=== PATIENT | female | born 1990 | race African-American/Black ===

== ENCOUNTER 2016-10-04 16:45 | Emergency (ER) | payer SELFPAY ==
[~2016-10-04] VITALS: Ht 154.9 cm; Wt 49.9 kg
[~2016-10-04 16:45] MED LIST: ALPR0.25 PO; AMOX500C PO; HYDR-971 PO; LITH300C
[2016-10-04 17:39] VITALS: BP 102/55
--- NOTE | 2016-10-04 17:47 | PHYS DOC ---
Past Medical History Past Medical History: Anxiety, Asthma, Bipolar, Depression Past Surgical History: , Other Additional Past Surgical Histo: left finger amputation Alcohol Use: None Drug Use: Marijuana Adult General Chief Complaint Chief Complaint: FOOT INJURY PAIN [facility] Patient is a 26 year old female who presents with right foot pain and an abrasion for two hours after a bed fell on her foot. Took Tylenol at time of incident. Ambulatory with limp. Tetanus up to date. Review of Systems Review of Systems Constitutional: Denies fever or chills Eyes: Denies change in visual acuity, redness, or eye pain HENT: Denies nasal congestion or sore throat Respiratory: Denies cough or shortness of breath Cardiovascular: No additional information not addressed in HPI GI: Denies abdominal pain, nausea, vomiting, bloody stools or diarrhea : Denies dysuria or hematuria [] Musculoskeletal: Right foot pain Integument: Denies rash or skin lesions. Abrasion right foot Neurologic: Denies headache, focal weakness or sensory changes [] Endocrine: Denies polyuria or polydipsia [] Current Medications Current Medications Current Medications Medications (Trade) Dose Ordered Sig/Vincenzo Start Time Stop Time Status Last Admin Dose Admin Ibuprofen (Motrin) 600 mg 1X ONCE 10/04/16 18:15 10/04/16 18:16 DC 10/04/16 17:50 600 MG Allergies Allergies Allergies Coded Allergies Type Severity Reaction Last Updated Verified No Known Drug Allergies 08/28/13 No Physical Exam Physical Exam Constitutional: Well developed, well nourished, no acute distress, non-toxic appearance. HENT: Normocephalic, atraumatic, bilateral external ears normal, oropharynx moist, no oral exudates, nose normal. Eyes: PERRLA, EOMI, conjunctiva normal, no discharge. [] Neck: Normal range of motion, no tenderness, supple, no stridor. Cardiovascular:Heart rate regular rhythm, no murmu Lungs & Thorax: Bilateral breath sounds clear to auscultation Abdomen: Bowel sounds normal, soft, no tenderness, no masses, no pulsatile masses. Skin: Warm, dry, no erythema, no rash. Back: No tenderness, no CVA tenderness Extremities: Mild swelling and tenderness to 3rd and 4th metatarsal right foot with small superficial abrasion. Neurologic: Alert and oriented X 3, normal motor function, normal sensory function, no focal deficits noted. Psychologic: Affect normal, judgement normal, mood normal. [] Current Patient Data Vital Signs Vital Signs Date Time Temp Pulse Resp B/P Pulse Ox O2 Delivery O2 Flow Rate FiO2 10/04/16 17:39 98.2 60 16 99 Room Air 98.2 EKG EKG [] Radiology/Procedures Radiology/Procedures Foot Xray reviewed with Dr. Tesfaye Impressions: 1. Foot contusion Course & Med Decision Making Course & Med Decision Making Pertinent Labs and Imaging studies reviewed. (See chart for details) Patient has been sitting in room throughout stay in no acute distress. After review of xray, patient was informed of plan of care including lm wrap, crutches, elevation and ice and she agreed with plan of care. After I left the room, patient got on telephone and began cussing and yelling that she wasn't getting any pain medicaiton. Spoke with patient regrading plan of care a second time and she refuses to discuss it further. Dragon Disclaimer Dragon Disclaimer This electronic medical record was generated, in whole or in part, using a voice recognition dictation system. Departure Departure Impression: Primary Impression: Contusion of foot, right Disposition: HOME, SELF-CARE Condition: STABLE Referrals: NO PCP (PCP) Patient Instructions: Foot Contusion, [id number] Additional Instructions: 1. May take Ibuprofen as directed for pain and inflammation. 2. Follow up with primary doctor in 1-2 days 3. Return if problems or concerns JENNIFER TRUJILLO APRN Oct 04, 2016 17:47
[2016-10-04] MEDS ORDERED: IBUPROFEN 600 MG TABLET. PO ONE (18:15)
--- NOTE | 2016-10-05 09:16 | RAD ---
Right foot 3 views. History: Injury, pain and swelling third and fourth metatarsals 3 views were taken of the right foot. There is not evidence of an acute fracture or osseous abnormality. Impression: 1. Negative right foot.
== END 2016-10-04 19:01 | disposition home or self-care (01) ==
LOC: ER 16:45
DX: S90.31XA Contusion of right foot, initial encounter (principal); J45.909 Unspecified asthma, uncomplicated; F12.10 Cannabis abuse, uncomplicated; W06.XXXA Fall from bed, initial encounter; Y93.89 Activity, other specified; Y92.89 Other specified places as the place of occurrence of the external cause; Y99.8 Other external cause status
CPT/HCPCS: 73630; 99284

== ENCOUNTER 2017-04-05 21:42 | Emergency (ER) | payer SELFPAY ==
[~2017-04-05] VITALS: Ht 154.9 cm; Wt 49.0 kg
[2017-04-05] MEDS ORDERED: ACETAMINOPHEN 325 MG TABLET. PO ONE (23:00)
[2017-04-05] MEDS ORDERED: LORazepam 1 MG TABLET PO ONE (23:00)
[2017-04-06 00:23] VITALS: BP 110/70
--- NOTE | 2017-04-06 00:34 | PHYS DOC ---
Past Medical History Past Medical History: Anxiety, Asthma, Bipolar, Depression Past Surgical History: , Other Additional Past Surgical Histo: left finger amputation Alcohol Use: None Drug Use: Marijuana Adult General Chief Complaint Chief Complaint: PSYCH EVALUATION HPI HPI 26-year-old female presenting to the emergency department today with anxiety. She recently stopped her medications and has been feeling anxious. She denies homicidal or suicidal ideation. She reports pulling at her hair and now is creating a bald spot. No other complaints. Onset today. Location generalized. Duration intermittent. No alleviating or exacerbating factors. Review of systems was negative for chest pain shortness of breath nausea vomiting fevers chills. She denies suicidal or homicidal ideation. All other review of systems is negative unless otherwise noted in history of present illness. ED course: 26-year-old female presenting to the emergency department today with increasing anxiety after stopping her bipolar medications. Vital signs unremarkable. Physical exam unremarkable. We had the psychiatric assessment team talk with the patient to get outpatient therapy for the patient. Otherwise the patient was then discharged in stable condition. Review of Systems Review of Systems SEE ABOVE. Current Medications Current Medications Current Medications Medications (Trade) Dose Ordered Sig/Vincenzo Start Time Stop Time Status Last Admin Dose Admin Acetaminophen (Tylenol) 650 mg 1X ONCE 04/05/17 23:00 04/05/17 23:01 DC 04/05/17 22:56 650 MG Lorazepam (Ativan) 1 mg 1X ONCE 04/05/17 23:00 04/05/17 23:01 DC 04/05/17 22:56 1 MG Allergies Allergies Allergies Coded Allergies Type Severity Reaction Last Updated Verified No Known Drug Allergies 08/28/13 No Physical Exam Physical Exam SEE ABOVE Constitutional: Well developed, well nourished, no acute distress, non-toxic appearance. [] HENT: Normocephalic, atraumatic, bilateral external ears normal, oropharynx moist, no oral exudates, nose normal. [] Eyes: PERRLA, EOMI, conjunctiva normal, no discharge. [] Neck: Normal range of motion, no tenderness, supple, no stridor. [] Cardiovascular:Heart rate regular rhythm, no murmur [] Lungs & Thorax: Bilateral breath sounds clear to auscultation [] Abdomen: Bowel sounds normal, soft, no tenderness, no masses, no pulsatile masses. [] Skin: Warm, dry, no erythema, no rash. [] Back: No tenderness, no CVA tenderness. [] Extremities: No tenderness, no cyanosis, no clubbing, ROM intact, no edema. [] Neurologic: Alert and oriented X 3, normal motor function, normal sensory function, no focal deficits noted. [] Psychologic: Affect normal, judgement normal, mood normal. Current Patient Data Vital Signs Vital Signs Date Time Temp Pulse Resp B/P (MAP) Pulse Ox O2 Delivery O2 Flow Rate FiO2 04/06/17 00:23 56 110/70 (83) 100 Room Air 04/05/17 21:59 97.8 18 97.8 EKG EKG [] Radiology/Procedures Radiology/Procedures [] Course & Med Decision Making Course & Med Decision Making Pertinent Labs and Imaging studies reviewed. (See chart for details) [] Dragon Disclaimer Dragon Disclaimer This electronic medical record was generated, in whole or in part, using a voice recognition dictation system. Departure Departure Impression: Primary Impression: Bipolar 1 disorder Disposition: HOME, SELF-CARE Condition: STABLE Referrals: NO PCP (PCP) MAGGY BURRIS MD Patient Instructions: Manic Depression (Bipolar Disorder) Additional Instructions: Thank you for allowing us to participate in your care today. Follow-up with your clinic visit scheduled by the psychiatric assessment team. Call your Primary Doctor tomorrow and inform them of your visit today. If you do not have a primary care provider you can ask for a list of our primary care providers. Return to the emergency department you have any new or concerning findings. This should be evaluated by the primary care physician and any necessary consulting services for continued management within a few days after discharge. Return to emergency room if you have any new or concerning symptoms including but not limited to fever, chills, nausea, vomiting, intractable pain, any new rashes, chest pain, shortness of air, uncontrolled bleeding, difficulty breathing, and/or vision loss. MARYCARMEN BARRAGAN MD Apr 06, 2017 00:34
== END 2017-04-06 00:38 | disposition home or self-care (01) ==
LOC: ER 21:42
DX: F31.9 Bipolar disorder, unspecified (principal); J45.909 Unspecified asthma, uncomplicated; F12.10 Cannabis abuse, uncomplicated; Z89.022 Acquired absence of left finger(s)
CPT/HCPCS: 99284

== ENCOUNTER 2017-05-05 10:22 | Emergency (ER) | payer SELFPAY ==
[~2017-05-05] VITALS: Ht 154.9 cm; Wt 49.9 kg
[2017-05-05 10:26] VITALS: BP 113/62
[2017-05-05] MEDS ORDERED: METH-37 PO (10:44)
[2017-05-05] MEDS ORDERED: TRAM-48 PO (10:44)
[2017-05-05] MEDS ORDERED: METH4TAB2 PO (10:44)
--- NOTE | 2017-05-05 10:44 | PHYS DOC ---
Past Medical History Past Medical History: Anxiety, Asthma, Bipolar, Depression Past Surgical History: , Other Additional Past Surgical Histo: left finger amputation Alcohol Use: None Drug Use: Marijuana Adult General Chief Complaint Chief Complaint: BACK PAIN OR INJURY HPI HPI Patient is a 26 year old female with history of asthma bipolar and anxiety who presents today complaining of thoracic back pain that began 3 days ago. 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 Patient states she believes she pulled her muscles. Patient denies any trauma. Denies any pain radiating to bilateral lower extremities or upper extremities. Denies any loss of bowel bladder function. Denies any urinary tract infection symptoms. Review of Systems Review of Systems Constitutional: Denies fever or chills [] GI: Denies abdominal pain, nausea, vomiting, bloody stools or diarrhea [] : Denies dysuria or hematuria [] Musculoskeletal: back pain Integument: Denies rash or skin lesions [] Neurologic: Denies headache, focal weakness or sensory changes [] Allergies Allergies Allergies Coded Allergies Type Severity Reaction Last Updated Verified No Known Drug Allergies 08/28/13 No Physical Exam Physical Exam Constitutional: Well developed, well nourished, no acute distress, non-toxic appearance. []] Abdomen: Bowel sounds normal, soft, no tenderness, no masses, no pulsatile masses. [] Skin: Warm, dry, no erythema, no rash. [] Back: Diffuse paraspinal muscle tenderness to the thoracic spine, no midline thoracic spine tenderness, no CVA tenderness. [] Extremities: No tenderness, no cyanosis, no clubbing, ROM intact, no edema. [] Neurologic: Alert and oriented X 3, normal motor function, normal sensory function, no focal deficits noted. [] Psychologic: Affect normal, judgement normal, mood normal. [] Current Patient Data Vital Signs Vital Signs Date Time Temp Pulse Resp B/P (MAP) Pulse Ox O2 Delivery O2 Flow Rate FiO2 05/05/17 10:26 98.0 65 16 98 Room Air 98.0 EKG EKG [] Radiology/Procedures Radiology/Procedures [] Course & Med Decision Making Course & Med Decision Making Pertinent Labs and Imaging studies reviewed. (See chart for details) Patient is in the ED with complaint of thoracic muscle strain, no known injury. Recommended heat or ice to her back. Recommended following up with the PCP. Discharged with Ultram,Robaxin and Medrol Dosepak. Provided return precautions and discharged in stable condition. Dragon Disclaimer Dragon Disclaimer This electronic medical record was generated, in whole or in part, using a voice recognition dictation system. Departure Departure Impression: Primary Impression: Acute thoracic myofascial strain Disposition: 01 HOME, SELF-CARE Condition: STABLE Referrals: NO PCP (PCP) Follow-up with your doctor in 1-2 weeks Patient Instructions: Back Pain, Adult, Muscle Strain Additional Instructions: You were seen with back pain suspicious of muscle strain. Do not lift anything heavier than a gallon of milk for one week. You can apply heat to ice to your back. You can do the exercises provided in your discharge paperwork as tolerated. Follow-up with the primary care doctor in 1-2 weeks. Scripts Methylprednisolone (MEDROL) 4 Mg Tab.ds.pk 1 PKG PO UD, #1 PKG Prov: MARITZA MARTINEZ APRN 05/05/17 Methocarbamol (ROBAXIN) 500 Mg Tablet 1 TAB PO TID, #30 TAB Prov: MARITZA MARTINEZ APRN 05/05/17 Tramadol Hcl (ULTRAM) 50 Mg Tablet 1 TAB PO Q6HRS, #30 TAB Prov: MARITZA MARTINEZ APRN 05/05/17 Problem Qualifiers Primary Impression: Acute thoracic myofascial strain Encounter type: initial encounter Qualified Codes: S29.019A - Strain of muscle and tendon of unspecified wall of thorax, initial encounter MARITZA MARTINEZ APRN May 05, 2017 10:44
== END 2017-05-05 10:49 | disposition home or self-care (01) ==
LOC: ER 10:22
DX: S29.012A Strain of muscle and tendon of back wall of thorax, initial encounter (principal); J45.909 Unspecified asthma, uncomplicated; F31.9 Bipolar disorder, unspecified; F12.10 Cannabis abuse, uncomplicated; X50.9XXA Other and unspecified overexertion or strenuous movements or postures, initial encounter; Y93.89 Activity, other specified; Y99.8 Other external cause status; Y92.89 Other specified places as the place of occurrence of the external cause
CPT/HCPCS: 99283

== ENCOUNTER 2017-07-21 11:57 | Emergency (ER) | payer SELFPAY ==
[~2017-07-21] VITALS: Ht 154.9 cm; Wt 51.3 kg
[~2017-07-21 11:57] MED LIST changes: +METH-37 PO; +METH4TAB2 PO; +TRAM-48 PO
[2017-07-21 12:58] LABS: BASO % 0 % (0-3); EOS % 2 % (0-3); HEMATOCRIT 43.6 % (36.0-47.0); HEMOGLOBIN 14.8 g/dL (12.0-15.5); LYMPH # 2.9 x10^3/uL (1.0-4.8); LYMPH % 38 % (24-48); MEAN CORPUSCULAR HEMOGLOBIN 31 pg (25-35); MEAN CORPUSCULAR HGB CONC 34 g/dL (31-37); MEAN CORPUSCULAR VOLUME 91 fL (79-100); MONO % 10 % (0-9); NEUT % 50 % (31-73); PLATELET COUNT 296 x10^3/uL (140-400); RED BLOOD COUNT 4.81 x10^6/uL (3.50-5.40); RED CELL DISTRIBUTION WIDTH 14.7 % (11.5-14.5); WHITE BLOOD COUNT 7.7 x10^3/uL (4.0-11.0)
[2017-07-21 13:00] LABS: NEG OBC UR NEG; POS OBC UR POS
--- NOTE | 2017-07-21 13:00 | EKG ---
[facility] [address] [place] [address] Test Date: 2017-07-21 Test Time: 12:50:07 Pat Name: RUBI BURNS Department: Room: Gender: F Compliance Reviewer: : 1990 Requested By: CINDY MONROY Order Number: [id number] Reading MD: Elizabeth Mota Measurements Intervals [place] Rate: 57 P: 52 CA: 180 QRS: 30 QRSD: 72 T: 20 QT: 398 QTc: 390 Interpretive Statements SINUS RHYTHM NORMAL EKG Electronically Signed On 07-21-2017 20:17:22 CDT by Elizabeth Mota
[2017-07-21 13:24] LABS: CALCIUM 8.9 mg/dL (8.5-10.1); CREATININE 0.8 mg/dL (0.6-1.0); GFR 104.9; POTASSIUM 3.6 mmol/L (3.5-5.1)
--- NOTE | 2017-07-21 13:29 | PHYS DOC ---
Past Medical History Past Medical History: Anxiety, Asthma, Bipolar, Depression Past Surgical History: , Other Additional Past Surgical Histo: left finger amputation Alcohol Use: None Drug Use: Marijuana Social History Narrative: pt reports no drug use at this time. Adult General Chief Complaint Chief Complaint: HEADACHE HPI HPI Patient is a 26 [address] AA female street of anxiety who presents with fall with cystic headache, nausea since yesterday. Patient states headache has gradually worsened today. Patient reports pain over the posterior occiput and neck. Denies midline neck tenderness, extremity weakness or loss of sensation. Denies vomiting. Patient does not recall the cause of her fall yesterday. Last bone menstrual period was 2 weeks ago. Other than anxiety, patient denies any chronic medical conditions. Review of Systems Review of Systems Review symptoms as per history of present illness. All other review symptoms are negative. Current Medications Current Medications Current Medications Medications (Trade) Dose Ordered Sig/Vincenzo Start Time Stop Time Status Last Admin Dose Admin Acetaminophen (Tylenol) 650 mg 1X ONCE 07/21/17 13:45 07/21/17 13:46 DC 07/21/17 13:47 650 MG Fentanyl Citrate (Fentanyl 2ml Vial) 75 mcg 1X ONCE 07/21/17 13:30 07/21/17 13:31 DC Lorazepam (Ativan) 1 mg 1X ONCE 07/21/17 12:45 07/21/17 12:46 DC 07/21/17 12:56 1 MG Morphine Sulfate 4 mg 1X ONCE 07/21/17 15:30 07/21/17 15:31 DC 07/21/17 15:33 4 MG Ondansetron HCl (Zofran) 4 mg 1X ONCE 07/21/17 13:30 07/21/17 13:31 DC 07/21/17 14:44 4 MG Allergies Allergies Allergies Coded Allergies Type Severity Reaction Last Updated Verified No Known Drug Allergies 08/28/13 No Physical Exam Physical Exam Constitutional: Well developed, well nourished, no acute distress, non-toxic appearance. [] HENT: Normocephalic, stairs scalp, tenderness, no scalp hematoma appreciated,, bilateral external ears normal, oropharynx moist, nose normal. [] Eyes: PERRLA, EOMI, conjunctiva normal, no discharge. [] Neck: Normal range of motion, no midline bony tenderness, or bruising. Diffuse posterior neck pain. [] Cardiovascular:Heart rate regular rhythm, no murmur. [] Lungs & Thorax: Bilateral breath sounds clear to auscultation [] Abdomen: Bowel sounds normal, soft, no tenderness. [] Skin: Warm, dry, no erythema.[] Back: No tenderness, no CVA tenderness. [] Extremities: No tenderness, no cyanosis, no clubbing, ROM intact, no edema. [] Neurologic: Alert and oriented X 3, normal motor function, normal sensory function, no focal deficits noted. [] Psychologic: Affect, anxious, tearful[] Current Patient Data Vital Signs Vital Signs Date Time Temp Pulse Resp B/P (MAP) Pulse Ox O2 Delivery O2 Flow Rate FiO2 07/21/17 16:33 52 14 97 07/21/17 15:33 Room Air 07/21/17 12:07 97.6 122/58 (79) 97.6 Lab Values Laboratory Tests Test 07/21/17 12:34 07/21/17 12:40 07/21/17 12:42 White Blood Count 7.7 x10^3/uL (4.0-11.0) Red Blood Count 4.81 x10^6/uL (3.50-5.40) Hemoglobin 14.8 g/dL (12.0-15.5) Hematocrit 43.6 % (36.0-47.0) Mean Corpuscular Volume 91 fL (79-100) Mean Corpuscular Hemoglobin 31 pg (25-35) Mean Corpuscular Hemoglobin Concent 34 g/dL (31-37) Red Cell Distribution Width 14.7 % (11.5-14.5) H Platelet Count 296 x10^3/uL (140-400) Neutrophils (%) (Auto) 50 % (31-73) Lymphocytes (%) (Auto) 38 % (24-48) Monocytes (%) (Auto) 10 % (0-9) H Eosinophils (%) (Auto) 2 % (0-3) Basophils (%) (Auto) 0 % (0-3) Neutrophils # (Auto) 3.9 x10^3uL (1.8-7.7) Lymphocytes # (Auto) 2.9 x10^3/uL (1.0-4.8) Monocytes # (Auto) 0.8 x10^3/uL (0.0-1.1) Eosinophils # (Auto) 0.2 x10^3/uL (0.0-0.7) Basophils # (Auto) 0.0 x10^3/uL (0.0-0.2) Sodium Level 138 mmol/L (136-145) Potassium Level 3.6 mmol/L (3.5-5.1) Chloride Level 102 mmol/L (98-107) Carbon Dioxide Level 25 mmol/L (21-32) Anion Gap 11 (6-14) Blood Urea Nitrogen 7 mg/dL (7-20) Creatinine 0.8 mg/dL (0.6-1.0) Estimated GFR (Cockcroft-Gault) 104.9 Glucose Level 89 mg/dL (70-99) Calcium Level 8.9 mg/dL (8.5-10.1) Thyroid Stimulating Hormone (TSH) 0.921 uIU/mL (0.358-3.74) Urine Test Negative (NEG) Urine Opiates Screen Pos (NEG) Urine Methadone Screen Neg (NEG) Urine Barbiturates Neg (NEG) Urine Phencyclidine Screen Neg (NEG) Urine Amphetamine/Methamphetamine Neg (NEG) Urine Benzodiazepines Screen Pos (NEG) Urine Cocaine Screen Neg (NEG) Urine Cannabinoids Screen Pos (NEG) Urine Ethyl Alcohol Neg (NEG) POC Urine HCG, Qualitative Hcg negative (Negative) Laboratory Tests 07/21/17 12:34 Laboratory Tests 07/21/17 12:34 EKG EKG [EKG: Sinus rhythm, rate 57, no acute ST-T wave changes, QTC 390.] Radiology/Procedures Radiology/Procedures [CT head last cervical spine no acute injury per radiology report.] Course & Med Decision Making Course & Med Decision Making Pertinent Labs and Imaging studies reviewed. (See chart for details) [Seen is neurologically intact. Symptoms consistent with postconcussion syndrome. Patient noted to be bradycardic in the ED. Heart rate ranging from 40 status. 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 Given typical closed head injury instructions with follow-up recommended. Patient verbalizes understanding agreement discharge instructions prior to departure.] Dragon Disclaimer Dragon Disclaimer This electronic medical record was generated, in whole or in part, using a voice recognition dictation system. Departure Departure Impression: Primary Impression: Post concussion syndrome Additional Impression: Bradycardia Disposition: HOME, SELF-CARE Condition: GOOD Referrals: NO PCP (PCP) Problem Qualifiers CINDY MONROY DO Jul 21, 2017 13:29
[2017-07-21] MEDS ORDERED: ONDANSETRON PF 4 MG/2 ML VIAL. IV ONE (13:30)
[2017-07-21] MEDS ORDERED: fentaNYL PF VIAL 100 MCG/2 ML VIAL IV ONE (13:30)
--- NOTE | 2017-07-21 13:43 | RAD ---
CT of the head without contrast, 07/21/2017: History: Fall, headache and neck soreness The ventricles are within normal limits in size. There is no shift of the midline structures. There is no evidence of acute intracranial hemorrhage or mass effect. IMPRESSION: No acute intracranial abnormality is detected. CT of the cervical spine without contrast, 07/21/2017: Noncontrast scans were obtained with multiplanar reconstructions produced. No fracture or dislocation is identified. There are slight posterior disc bulges at several levels. Shoulder related artifacts obscure the disc margins in the lower cervical region. No significant central spinal stenosis is evident. The paraspinous soft tissues are unremarkable. IMPRESSION: No acute cervical spine abnormality is detected. PQRS Compliance Statement: One or more of the following individualized dose reduction techniques were utilized for this examination: 1. Automated exposure control 2. Adjustment of the mA and/or kV according to patient size 3. Use of iterative reconstruction technique
[2017-07-21] MEDS ORDERED: ACETAMINOPHEN 325 MG TABLET. PO ONE (13:45)
[2017-07-21 14:09] LABS: BARBITURATES NEG (NEG); BENZODIAZEPINES POS (NEG); CANNABINOIDS POS (NEG); COCAINE NEG (NEG); METHADONE NEG (NEG); OPIATES POS (NEG); PHENCYCLIDINE NEG (NEG)
[2017-07-21] MEDS ORDERED: MORPHINE SULFATE 4 MG/ML DISP.SYRIN. IV ONE (15:30)
--- NOTE | 2017-07-21 16:09 | EKG ---
[facility] [address] [place] [address] Test Date: 2017-07-21 Test Time: 13:43:46 Pat Name: RUBI BURNS Department: Room: Gender: F Restaurant Assistant Manager: : 1990 Requested By: CINDY MONROY Order Number: [id number] Reading MD: Elizabeth Mota Measurements Intervals [place] Rate: 59 P: 43 [place]: 186 QRS: 16 QRSD: 74 T: 17 QT: 404 QTc: 400 Interpretive Statements SINUS RHYTHM NORMAL EKG Electronically Signed On 07-21-2017 20:17:52 CDT by Elizabeth Mota
[2017-07-21 16:33] VITALS: BP 107/57
== END 2017-07-21 16:42 | disposition home or self-care (01) ==
LOC: ER 11:57
DX: F07.81 Postconcussional syndrome (principal); R00.1 Bradycardia, unspecified; J45.909 Unspecified asthma, uncomplicated; F31.9 Bipolar disorder, unspecified
CPT/HCPCS: 36415; 70450; 72125; 80048; 80307; 81025; 84443; 85025; 93005; 96374; 96375; 99285; J2060; J2270; J2405; G0479

== ENCOUNTER 2017-08-11 15:21 | Emergency (ER) | payer SELFPAY ==
[~2017-08-11] VITALS: Ht 154.9 cm; Wt 54.4 kg
--- NOTE | 2017-08-11 15:55 | PHYS DOC ---
Past Medical History Past Medical History: Anxiety, Asthma, Bipolar, Depression Past Surgical History: , Other Additional Past Surgical Histo: left finger amputation Alcohol Use: None Drug Use: Marijuana Adult General Chief Complaint Chief Complaint: RECTAL BLEED HPI HPI Patient is a 26 year old F who presents with rectal pain and rectal bleeding. For the past 3 days the patient's had increasing rectal pain and bleeding when she wipes. Patient denies any history of hemorrhoids. Patient denies any history of rectal or course. Patient is on any blood thinners. Patient denies any lightheaded or dizziness. Patient denies any nausea/vomiting/diarrhea. Patient no other complaints. Review of Systems Review of Systems GEN: Denies fevers, chills, sweats HEENT: Denies blurred vision, sore throat CV: Denies chest pain RESP: Denies shortness of air, cough GI: Rectal plain and rectal bleeding NEURO: Denies confusion, dizziness MSK: Denies weakness, joint pain/swelling All other systems were reviewed and found to be within normal limits, except as documented in this note. Current Medications Current Medications Current Medications Medications (Trade) Dose Ordered Sig/Vincenzo Start Time Stop Time Status Last Admin Dose Admin Fentanyl Citrate (Fentanyl 2ml Vial) 50 mcg 1X ONCE 08/11/17 16:00 08/11/17 16:01 DC 08/11/17 16:22 50 MCG Info (Do NOT chart on this entry -- for MONITORING) 1 each PRN DAILY PRN 08/11/17 16:00 08/11/17 18:06 DC Iohexol (Omnipaque 300 Mg/ml) 75 ml 1X ONCE 08/11/17 16:00 08/11/17 16:01 DC 08/11/17 16:43 75 ML Ondansetron HCl (Zofran) 4 mg 1X ONCE 08/11/17 16:00 08/11/17 16:01 DC 08/11/17 16:22 4 MG Sodium Chloride 1,000 ml @ 1,000 mls/hr 1X ONCE 08/11/17 16:00 08/11/17 16:59 DC 08/11/17 16:22 1,000 MLS/HR Allergies Allergies Allergies Coded Allergies Type Severity Reaction Last Updated Verified No Known Drug Allergies 08/28/13 No Physical Exam Physical Exam GEN.: Mild distress. Alert and oriented. HEENT: Head is normocephalic, atraumatic NECK: Supple. LUNGS: CTAB. HEART: RRR, S1, S2 present. Peripheral pulses intact ABDOMEN: Soft, nontender. Positive bowel sounds. RECTAL: No external hemorrhoids seen, stool normal color, pain with digital rectal exam, no internal hemorrhoids felt EXTREMITIES: Without any cyanosis. NEUROLOGIC: Normal speech, normal tone PSYCHIATRIC: Normal affect, normal mood. SKIN: No ulcerations Current Patient Data Vital Signs Vital Signs Date Time Temp Pulse Resp B/P (MAP) Pulse Ox O2 Delivery O2 Flow Rate FiO2 08/11/17 16:21 80 18 117/67 (84) 100 Room Air 08/11/17 15:49 98.2 98.2 Lab Values Laboratory Tests Test 08/11/17 15:36 08/11/17 15:45 08/11/17 15:53 POC Urine HCG, Qualitative Hcg negative (Negative) Urine Color Yellow Urine Clarity Clear Urine pH 8.0 Urine Specific [place] 1.015 Urine Protein Negative mg/dL (NEG-TRACE) Urine Glucose (UA) Negative mg/dL (NEG) Urine Ketones (Stick) Negative mg/dL (NEG) Urine Blood Negative (NEG) Urine Nitrite Negative (NEG) Urine Bilirubin Negative (NEG) Urine Urobilinogen Dipstick 0.2 mg/dL (0.2 mg/dL) Urine Leukocyte Esterase Trace (NEG) Urine RBC 0 /HPF (0-2) Urine WBC Occ /HPF (0-4) Urine Squamous Epithelial Cells Occ /LPF Urine Bacteria 0 /HPF (0-FEW) White Blood Count 7.0 x10^3/uL (4.0-11.0) Red Blood Count 4.90 x10^6/uL (3.50-5.40) Hemoglobin 15.3 g/dL (12.0-15.5) Hematocrit 44.2 % (36.0-47.0) Mean Corpuscular Volume 90 fL (79-100) Mean Corpuscular Hemoglobin 31 pg (25-35) Mean Corpuscular Hemoglobin Concent 35 g/dL (31-37) Red Cell Distribution Width 15.0 % (11.5-14.5) H Platelet Count 336 x10^3/uL (140-400) Neutrophils (%) (Auto) 62 % (31-73) Lymphocytes (%) (Auto) 25 % (24-48) Monocytes (%) (Auto) 12 % (0-9) H Eosinophils (%) (Auto) 1 % (0-3) Basophils (%) (Auto) 0 % (0-3) Neutrophils # (Auto) 4.3 x10^3uL (1.8-7.7) Lymphocytes # (Auto) 1.8 x10^3/uL (1.0-4.8) Monocytes # (Auto) 0.8 x10^3/uL (0.0-1.1) Eosinophils # (Auto) 0.1 x10^3/uL (0.0-0.7) Basophils # (Auto) 0.0 x10^3/uL (0.0-0.2) Sodium Level 138 mmol/L (136-145) Potassium Level 3.9 mmol/L (3.5-5.1) Chloride Level 102 mmol/L (98-107) Carbon Dioxide Level 29 mmol/L (21-32) Anion Gap 7 (6-14) Blood Urea Nitrogen 11 mg/dL (7-20) Creatinine 0.7 mg/dL (0.6-1.0) Estimated GFR (Cockcroft-Gault) 122.4 BUN/Creatinine Ratio 16 (6-20) Glucose Level 83 mg/dL (70-99) Calcium Level 9.2 mg/dL (8.5-10.1) Total Bilirubin 0.2 mg/dL (0.2-1.0) Aspartate Amino Transferase (AST) 14 U/L (15-37) L Alanine Aminotransferase (ALT) 16 U/L (14-59) Alkaline Phosphatase 62 U/L (46-116) Total Protein 7.9 g/dL (6.4-8.2) Albumin 3.8 g/dL (3.4-5.0) Albumin/Globulin Ratio 0.9 (1.0-1.7) L Lipase 332 U/L (73-393) Laboratory Tests 08/11/17 15:53 Laboratory Tests 08/11/17 15:53 EKG EKG [] Radiology/Procedures Radiology/Procedures CT scan abdomen pelvis Impression: No abdominal or pelvic acute process. No perirectal abscess.[] Course & Med Decision Making Course & Med Decision Making Pertinent Labs and Imaging studies reviewed. (See chart for details) ED course: Patient was seen and examined emergency room CBC, CMP, CT scan abdomen pelvis were ordered along with a Hemoccult On reexamination patient is feeling much better updated on lab work and CT scan plan to discharge home. Recommended outpatient follow-up with PCP for possible colonoscopy. MDM: After reviewing the chart, CC/HPI/PMH, physical exam, [lab results], [ radiological results], I do not believe the patient has intra-abdominal emergency warranting further workup and/or admission at this time. I do not believe the patient has severe anemia warranting a blood transfusion. I believe patient stable for discharge with short-term follow up with PCP. Additional verbal discharge instructions were provided to the patient and that if symptoms get worse or any new symptoms arise that are worrisome to the patient she is to return to the emergency room immediately [] Dragon Disclaimer Dragon Disclaimer This electronic medical record was generated, in whole or in part, using a voice recognition dictation system. Departure Departure Impression: Primary Impression: Rectal pain Additional Impression: Rectal bleeding Disposition: 01 HOME, SELF-CARE Condition: IMPROVED Referrals: NO PCP (PCP) Patient Instructions: Rectal Bleeding, [id number] Additional Instructions: Please follow-up with your family physician next one to 2 days and return if symptoms increase Problem Qualifiers MADAN FELIX DO Aug 11, 2017 15:54
[2017-08-11] MEDS ORDERED: IOHEXOL 300 MG/ML 100ML VIAL. IV ONE (16:00)
[2017-08-11] MEDS ORDERED: CONTRAST GIVEN MC PRN (16:00)
[2017-08-11] MEDS ORDERED: IV NORMAL SALINE 1000ML BAG 1,000 ML IV ONE (16:00)
[2017-08-11] MEDS ORDERED: ONDANSETRON PF 4 MG/2 ML VIAL. IV ONE (16:00)
[2017-08-11] MEDS ORDERED: fentaNYL PF VIAL 100 MCG/2 ML VIAL IV ONE (16:00)
[2017-08-11 16:06] LABS: BASO % 0 % (0-3); EOS % 1 % (0-3); HEMATOCRIT 44.2 % (36.0-47.0); HEMOGLOBIN 15.3 g/dL (12.0-15.5); LYMPH # 1.8 x10^3/uL (1.0-4.8); LYMPH % 25 % (24-48); MEAN CORPUSCULAR HEMOGLOBIN 31 pg (25-35); MEAN CORPUSCULAR HGB CONC 35 g/dL (31-37); MEAN CORPUSCULAR VOLUME 90 fL (79-100); MONO % 12 % (0-9); NEUT % 62 % (31-73); PLATELET COUNT 336 x10^3/uL (140-400)
[2017-08-11 16:18] LABS: CALCIUM 9.2 mg/dL (8.5-10.1); CREATININE 0.7 mg/dL (0.6-1.0); GFR 122.4; POTASSIUM 3.9 mmol/L (3.5-5.1)
[2017-08-11 16:19] LABS: BILIRUBIN,URINE NEGATIVE (NEG); GLUCOSE,URINE NEGATIVE (NEG); NITRITE,URINE NEGATIVE (NEG); PROTEIN,URINE NEGATIVE (NEG-TRACE); UROBILINOGEN,URINE 0.2 mg/dL (0.2 mg/dL)
[2017-08-11 16:21] VITALS: BP 117/67
[2017-08-11 16:25] LABS: ALBUMIN 3.8 g/dL (3.4-5.0); ALBUMIN/GLOBULIN RATIO 0.9 (1.0-1.7); TOTAL BILIRUBIN 0.2 mg/dL (0.2-1.0); TOTAL PROTEIN 7.9 g/dL (6.4-8.2)
[2017-08-11 16:33] LABS: BACTERIA,URINE 0 /HPF (0-FEW); RBC,URINE 0 /HPF (0-2); SQUAMOUS EPITHELIAL CELL,UR OCC /LPF; WBC,URINE OCC /HPF (0-4)
--- NOTE | 2017-08-11 17:02 | RAD ---
CT abdomen and pelvis with contrast 08/11/2017 Clinical indication: Rectal pain and bleeding. Comparison: None. Technique: Multiple CT images of the abdomen and pelvis were obtained following the intravenous administration of 75 mL Omnipaque 300. PQRS Compliance Statement: One or more of the following individualized dose reduction techniques were utilized for this examination: 1. Automated exposure control 2. Adjustment of the mA and/or kV according to patient size 3. Use of iterative reconstruction technique Findings: Abdomen and pelvis: Heart size is normal. Visualized lung bases are clear. There is focal fatty infiltration in the liver adjacent to the falciform. Gallbladder unremarkable. Spleen, adrenal glands, pancreas and kidneys are unremarkable. Abdominal aorta is normal in caliber. Major portal, splenic and visualized. Mesenteric veins are patent. No abdominal lymphadenopathy. No abdominal free fluid. Small and large bowel loops are normal in caliber without obstruction. The appendix is not definitely identified, however no secondary findings to suggest appendicitis at the base of the cecum. Mildly distended and unopacified urinary bladder unremarkable. No iliac or inguinal lymphadenopathy. No pelvic free fluid. There is partial sacralization at L5 with pseudoarticulation of the sacrum bilaterally. No destructive osseous lesions. Impression: No abdominal or pelvic acute process. No perirectal abscess.
== END 2017-08-11 18:02 | disposition home or self-care (01) ==
LOC: ER 15:21
DX: K62.5 Hemorrhage of anus and rectum (principal); J45.909 Unspecified asthma, uncomplicated; F31.9 Bipolar disorder, unspecified
CPT/HCPCS: 36415; 74177; 80053; 81001; 81025; 83690; 85025; 87086; 96361; 96374; 96375; 99285; J2405; J3010; J7030; Q9967

== ENCOUNTER 2017-08-25 15:14 | Emergency (ER) | payer SELFPAY ==
[~2017-08-25] VITALS: Ht 154.9 cm; Wt 49.9 kg
[2017-08-25 15:21] VITALS: BP 138/82
[2017-08-25] MEDS ORDERED: AMOX500C PO (15:29)
[2017-08-25] MEDS ORDERED: TRAM50TA PO (15:29)
[2017-08-25] MEDS ORDERED: IBUP-1060 PO (15:29)
--- NOTE | 2017-08-25 15:29 | PHYS DOC ---
Past Medical History Past Medical History: Anxiety, Asthma, Bipolar, Depression Past Surgical History: , Other Additional Past Surgical Histo: left 2nd digit amputation Alcohol Use: None Drug Use: Marijuana Adult General Chief Complaint Chief Complaint: DENTAL PROBLEM [facility] HPI Patient is a 27 year old female presents the ED complaining of dental pain 3 days. Patient states she took 800 mg ibuprofen home without any pain relief. States she has a history of dental issues. States she has been unable to get into a dentist. Describes the pain as sharp. Rates the pain as 8 out of 10. Pain with chewing. Tolerating by mouth. Denies fever, swelling, headache, vision changes, nausea/vomiting, abdominal pain, chest pain or shortness of breath. Review of Systems Review of Systems Constitutional: Denies fever or chills [] Eyes: Denies change in visual acuity, redness, or eye pain [] HENT: Denies nasal congestion or sore throat [] Respiratory: Denies cough or shortness of breath [] Cardiovascular: No additional information not addressed in HPI [] GI: Denies abdominal pain, nausea, vomiting, bloody stools or diarrhea [] : Denies dysuria or hematuria [] Musculoskeletal: Denies back pain or joint pain [] Integument: Denies rash or skin lesions [] Neurologic: Denies headache, focal weakness or sensory changes [] Endocrine: Denies polyuria or polydipsia [] All other systems were reviewed and found to be within normal limits, except as documented in this note. Allergies Allergies Allergies Coded Allergies Type Severity Reaction Last Updated Verified No Known Drug Allergies 08/28/13 No Physical Exam Physical Exam Constitutional: Well developed, well nourished, no acute distress, non-toxic appearance. [] HENT: Normocephalic, atraumatic, bilateral external ears normal, oropharynx moist, no oral exudates, nose normal. MILD DENTAL CARIES TO LEFT LOWER MOLARS. POOR DENTITION THROUGHOUT. NO ABSCESS OR FLUCTUANCE. [] Eyes: PERRLA, EOMI, conjunctiva normal, no discharge. [] Neck: Normal range of motion, no tenderness, supple, no stridor. [] Cardiovascular:Heart rate regular rhythm, no murmur [] Lungs & Thorax: Bilateral breath sounds clear to auscultation [] Skin: Warm, dry, no erythema, no rash. [] Neurologic: Alert and oriented X 3, normal motor function, normal sensory function, no focal deficits noted. [] Psychologic: Affect normal, judgement normal, mood normal. [] Current Patient Data Vital Signs Vital Signs Date Time Temp Pulse Resp B/P (MAP) Pulse Ox O2 Delivery O2 Flow Rate FiO2 08/25/17 15:21 98.2 77 16 97 Room Air 98.2 EKG EKG [] Radiology/Procedures Radiology/Procedures [] Course & Med Decision Making Course & Med Decision Making Pertinent Labs and Imaging studies reviewed. (See chart for details) []Will treat with amoxicillin and analgesics. Patient prescribed Motrin and Tramadol. Discussed follow-up with dentist this week. Provided contact information/education. Provided community resource list. Discussed the importance of follow-up and reasons to return the ED. Patient understands and agrees with plan. Dragon Disclaimer Dragon Disclaimer This electronic medical record was generated, in whole or in part, using a voice recognition dictation system. Departure Departure Impression: Primary Impression: Pain, dental Additional Impression: Dental caries Disposition: 01 HOME, SELF-CARE Condition: STABLE Referrals: NO PCP (PCP) HANY SOOD DDRuby Patient Instructions: Dental Caries, Dental Pain Scripts Ibuprofen (IBUPROFEN) 800 Mg Tablet 800 MG PO PRN Q6HRS Y for INFLAMMATION, #20 TAB Prov: ESTELLA HOLLAND 08/25/17 Tramadol Hcl (TRAMADOL HCL) 50 Mg Tablet 1 TAB PO PRN Q6HRS, #12 TAB Prov: ESTELLA HOLLAND 08/25/17 Amoxicillin (AMOXICILLIN) 500 Mg Capsule 1 CAP PO TID, #30 CAP Prov: ESTELLA HOLLAND 08/25/17 Problem Qualifiers ESTELLA HOLLAND Aug 25, 2017 15:29
== END 2017-08-25 15:31 | disposition home or self-care (01) ==
LOC: ER 15:14
DX: K02.9 Dental caries, unspecified (principal); F41.9 Anxiety disorder, unspecified; J45.909 Unspecified asthma, uncomplicated; F31.9 Bipolar disorder, unspecified; F12.10 Cannabis abuse, uncomplicated
CPT/HCPCS: 99283

== ENCOUNTER 2017-09-01 12:32 | Emergency (ER) | payer SELFPAY ==
[~2017-09-01] VITALS: Ht 154.9 cm; Wt 55.3 kg
[~2017-09-01 12:32] MED LIST changes: +IBUP-1060 PO; +TRAM50TA PO
[2017-09-01 12:37] VITALS: BP 106/68
[2017-09-01] MEDS ORDERED: CEPH500T PO (12:57)
[2017-09-01] MEDS ORDERED: CYCL5TAB PO (12:57)
[2017-09-01] MEDS ORDERED: IBUP-1060 PO (12:57)
--- NOTE | 2017-09-01 12:57 | PHYS DOC ---
Past Medical History Past Medical History: Anxiety, Asthma, Bipolar, Depression Past Surgical History: , Other Additional Past Surgical Histo: left 2nd digit amputation Alcohol Use: None Drug Use: Marijuana Adult General Chief Complaint Chief Complaint: Neck Pain HPI HPI Patient is a 27 year old female presents to the ED complaining of back injury and bumps to back of neck 2 days. Patient states she has been moving and felt a pull in the left side of her back. States the pain is worse with movement. Denies traumatic injury. Describes the pain as sharp. Rates the pain as 6 out of 10. Patient also complaining of bumps to the back of her neck. States she has shaved the back of her head/hair in the past with out problem but has now developed small bumps to the back of her neck. States the bumps are painful to touch. States the bumps are around hair follicles. Denies fever, nausea/vomiting , photophobia, weakness, nausea vomiting, chest pain, shortness of breath, abdominal pain, sore throat or body aches. Review of Systems Review of Systems Constitutional: Denies fever or chills [] Eyes: Denies change in visual acuity, redness, or eye pain [] HENT: Denies nasal congestion or sore throat [] Respiratory: Denies cough or shortness of breath [] Cardiovascular: No additional information not addressed in HPI [] GI: Denies abdominal pain, nausea, vomiting, bloody stools or diarrhea [] : Denies dysuria or hematuria [] Musculoskeletal: Complains of back pain. Denies joint pain [] Integument: Denies rash or skin lesions [] Neurologic: Denies headache, focal weakness or sensory changes [] Endocrine: Denies polyuria or polydipsia [] All other systems were reviewed and found to be within normal limits, except as documented in this note. Allergies Allergies Allergies Coded Allergies Type Severity Reaction Last Updated Verified No Known Drug Allergies 08/28/13 No Physical Exam Physical Exam Constitutional: Well developed, well nourished, no acute distress, non-toxic appearance. [] HENT: Normocephalic, atraumatic, bilateral external ears normal, oropharynx moist, no oral exudates, nose normal. [] Eyes: PERRLA, EOMI, conjunctiva normal, no discharge. [] Neck: Normal range of motion, no tenderness, supple, no stridor. [] Cardiovascular:Heart rate regular rhythm, no murmur [] Lungs & Thorax: Bilateral breath sounds clear to auscultation [] Skin: Warm, dry. Minimal erythema surrounding hair follicles on back of neck. No abscess or fluctuance. [] Back: No bony tenderness. Pain to left lateral upper back with lateral motion. no CVA tenderness. [] Extremities: No tenderness, no cyanosis, no clubbing, ROM intact, no edema. [] Neurologic: Alert and oriented X 3, normal motor function, normal sensory function, no focal deficits noted. [] Psychologic: Affect normal, judgement normal, mood normal. [] Current Patient Data Vital Signs Vital Signs Date Time Temp Pulse Resp B/P (MAP) Pulse Ox O2 Delivery O2 Flow Rate FiO2 09/01/17 12:37 98.1 79 16 98 Room Air 98.1 EKG EKG [] Radiology/Procedures Radiology/Procedures []No bony tenderness. No x-ray warranted. Will treat with muscle relaxers and anti-inflammatories. Discussed symptomatic treatment home. Will also cover with Keflex for what appears to be cellulitis/folliculitis to back of patients neck and lower scalp. No abscess or fluctuance. Discussed follow-up with PCP in one to 2 days. Provided contact information/education. Discussed reasons to return to the ED. Patient understands and agrees with plan. Course & Med Decision Making Course & Med Decision Making Pertinent Labs and Imaging studies reviewed. (See chart for details) [] Dragon Disclaimer Dragon Disclaimer This electronic medical record was generated, in whole or in part, using a voice recognition dictation system. Departure Departure Impression: Primary Impression: Muscle strain Additional Impression: Cellulitis Disposition: 01 HOME, SELF-CARE Condition: STABLE Referrals: NO PCP (PCP) MAGGY CASTAÑEDA MD Patient Instructions: Cellulitis, Muscle Strain Scripts Cephalexin (CEPHALEXIN) 500 Mg Tablet 1 TAB PO QID for 7 Days, #28 TAB Prov: ESTELLA HOLLAND 09/01/17 Ibuprofen (IBUPROFEN) 800 Mg Tablet 800 MG PO PRN Q6HRS Y for INFLAMMATION, #20 TAB Prov: ESTELLA HOLLAND 09/01/17 Cyclobenzaprine Hcl (CYCLOBENZAPRINE HCL) 5 Mg Tablet 1 TAB PO TID, #12 TAB Prov: ESTELLA HOLLAND 09/01/17 Problem Qualifiers ESTELLA HOLLAND Sep 01, 2017 12:57
== END 2017-09-01 13:15 | disposition home or self-care (01) ==
LOC: ER 12:32
DX: S29.012A Strain of muscle and tendon of back wall of thorax, initial encounter (principal); L03.221 Cellulitis of neck; F41.9 Anxiety disorder, unspecified; J45.909 Unspecified asthma, uncomplicated; F31.9 Bipolar disorder, unspecified; F12.10 Cannabis abuse, uncomplicated; X58.XXXA Exposure to other specified factors, initial encounter; Y93.89 Activity, other specified; Y92.89 Other specified places as the place of occurrence of the external cause; Y99.8 Other external cause status
CPT/HCPCS: 99283

== ENCOUNTER 2018-01-16 20:49 | Emergency (ER) | payer SELFPAY ==
[2018-01-16 21:30] LABS: URINE HCG POC HCG NEGATIVE (Negative)
[2018-01-16] MEDS: HYDROcodone/APAP 5/325MG 1 TAB TABLET PO (21:42)
[2018-01-16] MEDS: CYCLOBENZAPRINE 10 MG TABLET. PO (21:42)
[2018-01-18 14:23] LABS: CHLAMYDIA PROBE Negative (Negative); GC PROBE Negative (Negative)
== END 2018-01-16 22:11 | disposition home or self-care (01) ==
LOC: ER 20:49
DX: N76.0 Acute vaginitis (principal); B96.89 Other specified bacterial agents as the cause of diseases classified elsewhere; M54.5 Low back pain; M54.6 Pain in thoracic spine; F41.9 Anxiety disorder, unspecified; J45.909 Unspecified asthma, uncomplicated; F31.9 Bipolar disorder, unspecified; F12.10 Cannabis abuse, uncomplicated
CPT/HCPCS: 81025; 87491; 87591; 99284; Q0111

== ENCOUNTER 2018-08-08 16:12 | Emergency (ER) | payer SELFPAY ==
[~2018-08-08] VITALS: Ht 154.9 cm; Wt 49.9 kg
[~2018-08-08 16:12] MED LIST changes: +CEPH500T PO; +CYCL10TA2 PO; +CYCL5TAB PO; +HYDR-3164 PO; -HYDR-971 PO; +METR500T PO; +NAPR-683 PO
[2018-08-08 18:45] LABS: BILIRUBIN,URINE NEGATIVE (NEG); CLARITY,URINE CLEAR; COLOR,URINE YELLOW; NITRITE,URINE NEGATIVE (NEG); PH,URINE 7.5; PROTEIN,URINE NEGATIVE (NEG-TRACE); UROBILINOGEN,URINE 0.2 mg/dL (0.2 mg/dL)
[2018-08-08] MEDS ORDERED: HYDROcodone/APAP 5/325MG 1 TAB TABLET PO ONE ×2 (18:45→20:15)
[2018-08-08 18:57] LABS: HYALINE CASTS, URINE FEW /HPF; SQUAMOUS EPITHELIAL CELL,UR MOD /LPF
[2018-08-08 18:58] LABS: BACTERIA,URINE 0 /HPF (0-FEW); RBC,URINE 0 /HPF (0-2)
[2018-08-08 19:57] VITALS: BP 134/77
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
[2018-08-08] MEDS ORDERED: HYDR-2758 PO (21:17)
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
== END 2018-08-08 21:20 | disposition home or self-care (01) ==
LOC: EEVIPCON 16:12 → ER 16:12
DX: S06.9X9A Unspecified intracranial injury with loss of consciousness of unspecified duration, initial encounter (principal); S00.83XA Contusion of other part of head, initial encounter; M54.5 Low back pain; M54.6 Pain in thoracic spine; F41.9 Anxiety disorder, unspecified; J45.909 Unspecified asthma, uncomplicated; F31.9 Bipolar disorder, unspecified; F17.200 Nicotine dependence, unspecified, uncomplicated; Z98.890 Other specified postprocedural states; Z89.022 Acquired absence of left finger(s); Y08.89XA Assault by other specified means, initial encounter; Y93.89 Activity, other specified; Y92.89 Other specified places as the place of occurrence of the external cause; Y99.8 Other external cause status
CPT/HCPCS: 70450; 70486; 72072; 72100; 72125; 81001; 81025; 99285-25

== ENCOUNTER 2018-10-06 12:32 | Emergency (ER) | payer SELFPAY ==
[~2018-10-06] VITALS: Ht 154.9 cm; Wt 53.1 kg
[~2018-10-06 12:32] MED LIST changes: +HYDR-2761 PO
--- NOTE | 2018-10-06 14:09 | PHYS DOC ---
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 Patient states pain starts in left side abdomen and radiates into suprapubic area. Patient reports over the past couple of days she has had increased vaginal discharge with foul odor. Patient reports she has had dysuria denying any other urinary symptoms. She denies fever, nausea or vomiting, or diarrhea. Patient reports she took ibuprofen yesterday but has not taken any evwy-qqh-[id number] medications today for pain. Patient reports she is in a monogamous relationship with her . Patient reports she has had chlamydia in the past but denies any recent vaginal infections. Review of Systems Review of Systems Constitutional: Denies fever or chills [] Cardiovascular: No additional information not addressed in HPI [] GI: Denies nausea, vomiting, bloody stools or diarrhea. Reports LLQ pain radiating into suprapubic area : Denies hematuria. Reports dysuria and vaginal discharge w/foul odor Musculoskeletal: Denies back pain or joint pain [] Integument: Denies rash or skin lesions [] Neurologic: Denies headache, focal weakness or sensory changes [] All other systems were reviewed and found to be within normal limits, except as documented in this note. Current Medications Current Medications Current Medications Medications (Trade) Dose Ordered Sig/Vincenzo Start Time Stop Time Status Last Admin Dose Admin Azithromycin (Zithromax) 1,000 mg 1X ONCE 10/06/18 17:15 10/06/18 17:16 DC 10/06/18 17:28 1,000 MG Ceftriaxone Sodium (Rocephin Im) 250 mg 1X ONCE 10/06/18 17:15 10/06/18 17:16 DC 10/06/18 17:27 250 MG Fentanyl Citrate (Fentanyl 2ml Vial) 50 mcg 1X ONCE 10/06/18 14:15 10/06/18 14:16 DC 10/06/18 14:55 50 MCG Ketorolac Tromethamine (Toradol 15mg Vial) 15 mg 1X ONCE 10/06/18 16:00 10/06/18 16:04 DC 10/06/18 16:19 15 MG Allergies Allergies Allergies Coded Allergies Type Severity Reaction Last Updated Verified No Known Drug Allergies 08/28/13 No Physical Exam Physical Exam Constitutional: Well developed, well nourished, mild distress, non-toxic appearance. [] HENT: Normocephalic, atraumatic, oropharynx moist Eyes: Pupils equal, conjunctiva normal, no discharge. [] Neck: Normal range of motion, no tenderness, supple, no stridor. [] Cardiovascular: Heart rate regular rhythm, no murmur [] Lungs & Thorax: Bilateral breath sounds clear to auscultation. Resp. equal/ nonlabored Abdomen: Bowel sounds normal, soft- tender to palpation left lower abdomen into suprapubic area diffuse in nature across lower left side abdomen-no rebound tenderness, rigidity, or distention. No masses Skin: Warm, dry, no erythema, no rash. [] Back: No tenderness, no CVA tenderness. [] Extremities: No tenderness, no cyanosis, no clubbing, ROM intact, no edema. [] Neurologic: Alert and oriented X 3, normal motor function, normal sensory function, no focal deficits noted. [] Psychologic: Affect normal, judgement normal, anxious during initial exam at times tearful. Reports anxiety hx denying SI [] Current Patient Data Vital Signs Vital Signs Date Time Temp Pulse Resp B/P (MAP) Pulse Ox O2 Delivery O2 Flow Rate FiO2 10/06/18 18:04 64 16 105/60 (75) 97 Room Air 10/06/18 13:40 97.7 97.7 Lab Values Laboratory Tests Test 10/06/18 13:36 10/06/18 13:49 10/06/18 14:45 Urine Collection Type Unknown Urine Color Yellow Urine Clarity Clear Urine pH 8.0 Urine Specific [place] 1.015 Urine Protein Negative mg/dL (NEG-TRACE) Urine Glucose (UA) Negative mg/dL (NEG) Urine Ketones (Stick) Negative mg/dL (NEG) Urine Blood Negative (NEG) Urine Nitrite Negative (NEG) Urine Bilirubin Negative (NEG) Urine Urobilinogen Dipstick 0.2 mg/dL (0.2 mg/dL) Urine Leukocyte Esterase Negative (NEG) Urine RBC 0 /HPF (0-2) Urine WBC 0 /HPF (0-4) Urine Squamous Epithelial Cells Occ /LPF Urine Bacteria 0 /HPF (0-FEW) POC Urine HCG, Qualitative Hcg negative (Negative) White Blood Count 9.3 x10^3/uL (4.0-11.0) Red Blood Count 4.77 x10^6/uL (3.50-5.40) Hemoglobin 15.5 g/dL (12.0-15.5) Hematocrit 43.7 % (36.0-47.0) Mean Corpuscular Volume 92 fL (79-100) Mean Corpuscular Hemoglobin 32 pg (25-35) Mean Corpuscular Hemoglobin Concent 35 g/dL (31-37) Red Cell Distribution Width 13.6 % (11.5-14.5) Platelet Count 348 x10^3/uL (140-400) Neutrophils (%) (Auto) 61 % (31-73) Lymphocytes (%) (Auto) 31 % (24-48) Monocytes (%) (Auto) 8 % (0-9) Eosinophils (%) (Auto) 1 % (0-3) Basophils (%) (Auto) 0 % (0-3) Neutrophils # (Auto) 5.7 x10^3uL (1.8-7.7) Lymphocytes # (Auto) 2.8 x10^3/uL (1.0-4.8) Monocytes # (Auto) 0.7 x10^3/uL (0.0-1.1) Eosinophils # (Auto) 0.1 x10^3/uL (0.0-0.7) Basophils # (Auto) 0.0 x10^3/uL (0.0-0.2) Sodium Level 137 mmol/L (136-145) Potassium Level 4.0 mmol/L (3.5-5.1) Chloride Level 101 mmol/L (98-107) Carbon Dioxide Level 25 mmol/L (21-32) Anion Gap 11 (6-14) Blood Urea Nitrogen 7 mg/dL (7-20) Creatinine 0.8 mg/dL (0.6-1.0) Estimated GFR (Cockcroft-Gault) 103.3 BUN/Creatinine Ratio 9 (6-20) Glucose Level 81 mg/dL (70-99) Calcium Level 9.6 mg/dL (8.5-10.1) Total Bilirubin 0.3 mg/dL (0.2-1.0) Aspartate Amino Transferase (AST) 14 U/L (15-37) L Alanine Aminotransferase (ALT) 18 U/L (14-59) Alkaline Phosphatase 59 U/L (46-116) Total Protein 8.2 g/dL (6.4-8.2) Albumin 4.0 g/dL (3.4-5.0) Albumin/Globulin Ratio 1.0 (1.0-1.7) Laboratory Tests 10/06/18 14:45 Laboratory Tests 10/06/18 14:45 Microbiology 10/06/18 Wet Prep - Final, Complete EKG EKG [] Radiology/Procedures Radiology/Procedures Pelvic Exam: EDT [employer] present 1550 Abdomen: Diffuse tenderness in suprapubic area External Genitalia: Normal Skin-no rash or lesions Speculum: Normal vaginal mucosa-no erythema or lesions on my cervix closed , yellowish vaginal discharge with odor-no blood in vaginal vault Bimanual: No adnexal masses- bilateral adnexal tenderness, + cervical motion tenderness PROCEDURE: PELVIS W/TV EXAM: Pelvic sonogram. HISTORY: Pain and vaginal discharge. TECHNIQUE: Transabdominal and transvaginal sonographic imaging of the pelvis was performed. COMPARISON: None. FINDINGS: The uterus measures 7.3 x 4.6 x 3.5 cm. The endometrial stripe measures 1.2 cm in thickness. The ovaries are normal in size and demonstrate normal blood flow. There is a 1.9 cm dominant left ovarian follicle/follicular cyst. There are small bilateral ovarian follicles. There is no pelvic free fluid. IMPRESSION: 1. Small physiologic ovarian follicles with a dominant left ovarian follicle/follicular cyst measuring 1.9 cm. 2. Prominent endometrial stripe, likely due to the phase of the patient's menstrual cycle. Electronically signed by: Mikki Ochoa MD (10/06/2018 4:37 PM) [place] [id number] DICTATED and SIGNED BY: MIKKI OCHOA MD DATE: 10/06/18 2790 Course & Med Decision Making Course & Med Decision Making Pertinent Labs and Imaging studies reviewed. (See chart for details) 1710: Discussed test results with patient- labs unremarkable and UA without blood/leuks with neg. UCG. US report with probable lt ovarian cyst no free fld or other acute findings. Patient becomes tearful any time talking about her symptoms and concerns for STD as she has never had foul odor or colored discharge except when she was dx with chlamydia yrs ago. She reports she plans on talking to her regarding vaginal discharge and concerns. Patient denies any new partners for her. Discussed bacterial vaginosis-wet mount was negative for trichomonas or yeast. Discussed pending cultures and need for her to follow up in 2-3 days. Patient is wanting prophylactic treatment and so will provide Rocephin and azithromycin while in the ER along with prescription for Flagyl. Will provide pt with clinic and physician referral information with discharge paperwork for follow-up. Will provide patient with small quantity of pain medication and advised on use of [id number] ibuprofen also. Discharge instructions discussed and education provided on s&s to return to ER for. Sincere Disclaimer Sincere Disclaimer This electronic medical record was generated, in whole or in part, using a voice recognition dictation system. Departure Departure Impression: Primary Impression: Bacterial vaginosis Additional Impression: Abdominal pain Referrals: NO PCP (PCP) Patient Instructions: Abdominal Pain, Bacterial Vaginosis Additional Instructions: Drink plenty of fluids. Ibuprofen as directed on container as needed for pain. Follow-up with primary care physician for reevaluation to ensure infection is completely treated. Condom use until antibiotics completed and recheck is done. Your vaginal cultures are pending and results should be returned in 2-3 days follow-up on these results. Scripts Metronidazole (FLAGYL) 500 Mg Tablet 1 TAB PO BID, #14 TAB 0 Refills Prov: SYDNIE WASSERMAN APRN 10/06/18 Hydrocodone/Apap 5-325 (NORCO 5-325 TABLET) 1 Each Tablet 1 TAB PO PRN Q6HRS PRN for PAIN, #8 TAB 0 Refills Prov: SYDNIE WASSERMAN APRN 10/06/18 Problem Qualifiers SYDNIE WASSERMAN APRN Oct 06, 2018 14:09
[2018-10-06] MEDS ORDERED: fentaNYL PF VIAL 100 MCG/2 ML VIAL IV ONE (14:15)
[2018-10-06 14:28] LABS: BILIRUBIN,URINE NEGATIVE (NEG); CLARITY,URINE CLEAR; COLOR,URINE YELLOW; NITRITE,URINE NEGATIVE (NEG); PROTEIN,URINE NEGATIVE (NEG-TRACE); UROBILINOGEN,URINE 0.2 mg/dL (0.2 mg/dL)
[2018-10-06 14:54] LABS: BASO % 0 % (0-3); EOS # 0.1 x10^3/uL (0.0-0.7); EOS % 1 % (0-3); HEMATOCRIT 43.7 % (36.0-47.0); HEMOGLOBIN 15.5 g/dL (12.0-15.5); LYMPH # 2.8 x10^3/uL (1.0-4.8); LYMPH % 31 % (24-48); MEAN CORPUSCULAR HEMOGLOBIN 32 pg (25-35); MEAN CORPUSCULAR HGB CONC 35 g/dL (31-37); MEAN CORPUSCULAR VOLUME 92 fL (79-100); MONO # 0.7 x10^3/uL (0.0-1.1); MONO % 8 % (0-9); NEUT # 5.7 x10^3uL (1.8-7.7); NEUT % 61 % (31-73); PLATELET COUNT 348 x10^3/uL (140-400); RED BLOOD COUNT 4.77 x10^6/uL (3.50-5.40); RED CELL DISTRIBUTION WIDTH 13.6 % (11.5-14.5); WHITE BLOOD COUNT 9.3 x10^3/uL (4.0-11.0)
[2018-10-06 15:00] LABS: BACTERIA,URINE 0 /HPF (0-FEW); RBC,URINE 0 /HPF (0-2); WBC,URINE 0 /HPF (0-4)
[2018-10-06 15:01] LABS: SQUAMOUS EPITHELIAL CELL,UR OCC /LPF
[2018-10-06 15:10] LABS: CALCIUM 9.6 mg/dL (8.5-10.1); CREATININE 0.8 mg/dL (0.6-1.0); GFR 103.3
[2018-10-06 15:15] LABS: TOTAL BILIRUBIN 0.3 mg/dL (0.2-1.0); TOTAL PROTEIN 8.2 g/dL (6.4-8.2)
[2018-10-06] MEDS ORDERED: KETOROLAC 15 MG/ML VIAL. IV ONE (16:00)
--- NOTE | 2018-10-06 16:42 | RAD ---
EXAM: Pelvic sonogram. HISTORY: Pain and vaginal discharge. TECHNIQUE: Transabdominal and transvaginal sonographic imaging of the pelvis was performed. COMPARISON: None. FINDINGS: The uterus measures 7.3 x 4.6 x 3.5 cm. The endometrial stripe measures 1.2 cm in thickness. The ovaries are normal in size and demonstrate normal blood flow. There is a 1.9 cm dominant left ovarian follicle/follicular cyst. There are small bilateral ovarian follicles. There is no pelvic free fluid. IMPRESSION: 1. Small physiologic ovarian follicles with a dominant left ovarian follicle/follicular cyst measuring 1.9 cm. 2. Prominent endometrial stripe, likely due to the phase of the patient's menstrual cycle. Electronically signed by: Mikki Ochoa MD (10/06/2018 4:37 PM) [place] [id number]
[2018-10-06] MEDS ORDERED: AZITHROMYCIN 250 MG TABLET. PO ONE (17:15)
[2018-10-06] MEDS ORDERED: cefTRIAXone IM 250 MG VIAL IM ONE (17:15)
[2018-10-06] MEDS ORDERED: HYDR-3164 PO (17:35)
[2018-10-06] MEDS ORDERED: METR500T PO (17:35)
[2018-10-06 18:04] VITALS: BP 105/60
[2018-10-08 14:35] LABS: GC PROBE Negative (Negative)
== END 2018-10-06 18:36 | disposition home or self-care (01) ==
LOC: ER 12:32
DX: N76.0 Acute vaginitis (principal); B96.89 Other specified bacterial agents as the cause of diseases classified elsewhere; R10.32 Left lower quadrant pain; R30.0 Dysuria; F41.9 Anxiety disorder, unspecified; F31.9 Bipolar disorder, unspecified; J45.909 Unspecified asthma, uncomplicated; Z98.890 Other specified postprocedural states; Z89.022 Acquired absence of left finger(s)
CPT/HCPCS: 36415; 76830; 76856; 80053; 81001; 81025; 85025; 87491; 87591; 96372; 96374; 96375; 99284; J0696; J1885; J3010; Q0111; Q0144

== ENCOUNTER 2019-07-27 09:34 | Emergency (ER) | payer SELFPAY ==
[~2019-07-27] VITALS: Ht 154.9 cm; Wt 49.9 kg
[~2019-07-27 09:34] MED LIST changes: +AMOX500T PO
[2019-07-27 09:42] VITALS: BP 126/81
[2019-07-27] MEDS ORDERED: AMOX500T PO (10:26)
[2019-07-27] MEDS ORDERED: TRAM-48 PO (10:26)
--- NOTE | 2019-07-27 10:27 | PHYS DOC ---
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 Denies any fever or trismus. Review of Systems Review of Systems Constitutional: Denies fever or chills [] HENT: Reports dental pain. Musculoskeletal: Denies back pain or joint pain [] Integument: Denies rash or skin lesions [] Neurologic: Denies headache, focal weakness or sensory changes [] All other systems were reviewed and found to be within normal limits, except as documented in this note. Allergies Allergies Allergies Coded Allergies Type Severity Reaction Last Updated Verified No Known Drug Allergies 08/28/13 No Physical Exam Physical Exam Constitutional: Well developed, well nourished, no acute distress, non-toxic appearance. [] HENT: Normocephalic, atraumatic, bilateral external ears normal, oropharynx moist, no oral exudates, nose normal. [] Tooth #17 is decayed and broken, appears to have an abscess with no fluctuance., poor dental hygiene noted. Skin: Warm, dry, no erythema, no rash. [] Back: No tenderness, no CVA tenderness. [] Extremities: No tenderness, no cyanosis, no clubbing, ROM intact, no edema. [] Neurologic: Alert and oriented X 3, normal motor function, normal sensory function, no focal deficits noted. [] Psychologic: Affect normal, judgement normal, mood normal. [] Current Patient Data Vital Signs Vital Signs Date Time Temp Pulse Resp B/P (MAP) Pulse Ox O2 Delivery O2 Flow Rate FiO2 07/27/19 09:42 98.1 90 18 126/81 (96) 100 Room Air 98.1 EKG EKG [] Radiology/Procedures Radiology/Procedures [] Course & Med Decision Making Course & Med Decision Making Pertinent Labs and Imaging studies reviewed. (See chart for details) Patient has dental abscess, prescription sent to her pharmacy for amoxicillin and tramadol. Dragon Disclaimer Dragon Disclaimer This electronic medical record was generated, in whole or in part, using a voice recognition dictation system. Departure Departure Impression: Primary Impression: Dentalgia Additional Impression: Abscess, dental Disposition: 01 HOME, SELF-CARE Condition: STABLE Referrals: NO PCP (PCP) follow up with a dentist as soon as you can Patient Instructions: Dental Abscess Additional Instructions: You were evaluated in the ER for dental abscess, please follow up with your dentist as soon as you can Scripts Amoxicillin (AMOXICILLIN) 500 Mg Tablet 1 TAB PO BID, #20 TAB Prov: MARITZA MARTINEZ APRN 07/27/19 Problem Qualifiers MARITZA MARTINEZ APRN Jul 27, 2019 10:27
== END 2019-07-27 10:33 | disposition home or self-care (01) ==
LOC: ER 09:34
DX: K04.7 Periapical abscess without sinus (principal); K08.89 Other specified disorders of teeth and supporting structures; J45.909 Unspecified asthma, uncomplicated
CPT/HCPCS: 99283

== ENCOUNTER 2020-06-18 12:46 | Emergency (ER) | payer SELFPAY ==
[~2020-06-18] VITALS: Ht 154.9 cm; Wt 52.0 kg
[2020-06-18 13:41] VITALS: BP 114/69
--- NOTE | 2020-06-18 14:07 | PHYS DOC ---
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 Patient denies any vaginal bleeding or discharge, no nausea vomiting, no fever. Patient started to have lower pelvic pain today. Patient denies any history of kidney stone, no fever, no cough, no chest pain. Patient is sexually active. Review of Systems: Review of Systems: Constitutional: Denies fever or chills. [] Eyes: Denies change in visual acuity. [] HENT: Denies nasal congestion or sore throat. [] Respiratory: Denies cough or shortness of breath. [] Cardiovascular: Denies chest pain or edema. [] GI: Positive for abdominal pain , NO nausea, vomiting, bloody stools or diarrhea. [] : Positive for dysuria. [] Musculoskeletal: Denies back pain or joint pain. [] Integument: Denies rash. [] Neurologic: Denies headache, focal weakness or sensory changes. [] Endocrine: Denies polyuria or polydipsia. [] Lymphatic: Denies swollen glands. [] Psychiatric: Denies depression or anxiety. [] Heart Score: Risk Factors: Risk Factors: DM, Current or recent (<one month) smoker, HTN, HLP, family history of CAD, obesity. Risk Scores: Score 0 - 3: 2.5% MACE over next 6 weeks - Discharge Home Score 4 - 6: 20.3% MACE over next 6 weeks - Admit for Clinical Observation Score 7 - 10: 72.7% MACE over next 6 weeks - Early Invasive Strategies Allergies: Allergies: Allergies Coded Allergies Type Severity Reaction Last Updated Verified No Known Drug Allergies 08/28/13 No Physical Exam: PE: Constitutional: Well developed, well nourished, no acute distress, non-toxic appearance. [] HENT: Normocephalic, atraumatic, bilateral external ears normal, oropharynx moist, no oral exudates, nose normal. [] Eyes: PERRLA, EOMI, conjunctiva normal, no discharge. [] Neck: Normal range of motion, no tenderness, supple, no stridor. [] Cardiovascular:Heart rate regular rhythm, no murmur [] Lungs & Thorax: Bilateral breath sounds clear to auscultation [] Abdomen: Bowel sounds normal, soft, RLQ AND SUPRAPUBIC tenderness, no masses, no pulsatile masses. [] Skin: Warm, dry, no erythema, no rash. [] Back: No tenderness, Positive for right side CVA tenderness. [] Extremities: No tenderness, no cyanosis, no clubbing, ROM intact, no edema. [] Neurologic: Alert and oriented X 3, normal motor function, normal sensory function, no focal deficits noted. [] Psychologic: Affect normal, judgement normal, mood normal. [] Current Patient Data: Vital Signs: Vital Signs Date Time Temp Pulse Resp B/P (MAP) Pulse Ox O2 Delivery O2 Flow Rate FiO2 06/18/20 13:41 98.2 69 16 114/69 (84) 97 98.2 06/18/20 13:03 Room Air EKG: EKG: [] Radiology/Procedures: Radiology/Procedures: [][facility] [address] [place] [address] IMAGING REPORT Signed PATIENT: RUBI BURNS ACCOUNT: [id number] : 1990 LOCATION: ER AGE: 29 SEX: F EXAM STATUS: REG ER ORD. PHYSICIAN: HAILEE PEMBERTON DO REASON: LOW ABDOMINAL PAIN X 5 DAYS. N/V PROCEDURE: CT ABD PELV W/ IV CONTRST ONLY Exam: CT abdomen/pelvis with intravenous contrast Indication: Low abdominal pain for 5 days, nausea and vomiting Comparison: CT abdomen pelvis 08/11/2017 Technique: Helical CT imaging performed of the abdomen and pelvis after the intravenous administration of 75 mL Omnipaque 300 intravenous contrast. Sagittal and coronal reformats were obtained. One or more of the following individualized dose reduction techniques were utilized for this examination: 1. Automated exposure control 2. Adjustment of the mA and/or kV according to patient size 3. Use of iterative reconstruction technique. Findings: Lower chest: Lung bases are clear. The heart is normal in size. Liver: Focal fat along the falciform ligament. Liver is otherwise normal. Gallbladder/Biliary Tree: Normal. Pancreas: Normal. Spleen: Normal. Adrenal Glands: Normal. Kidneys/Ureters/Bladder: Kidneys are normal. No hydronephrosis. Ureters are nondilated. Urinary bladder is normal. Reproductive Organs: Uterus anteverted. Ovaries are unremarkable for age. There is a dominant right ovarian follicle. Stomach, small bowel, and colon: Stomach and small bowel are normal. The appendix is normal. Colon is normal. Vasculature: Abdominal aorta and inferior vena cava are normal. Lymph Nodes: No lymphadenopathy. Peritoneum and retroperitoneum: Small volume of free fluid in the pelvis. No free air. Bones: No acute osseous abnormality. Impression: 1. Small volume of free fluid in the pelvis and right lower quadrant, likely physiologic or possibly related to a ruptured ovarian cyst. 2. Normal appendix. Electronically signed by: Keeley Adkins MD (06/18/2020 5:14 PM) [id number] DICTATED and SIGNED BY: KEELEY ADKINS MD DATE: 06/18/20 1714 Course & Med Decision Making: Course & Med Decision Making Pertinent Labs and Imaging studies reviewed. (See chart for details) [] Dragon Disclaimer: [email or web address] Disclaimer: This electronic medical record was generated, in whole or in part, using a voice recognition dictation system. Departure Departure Impression: Primary Impression: Ruptured ovarian cyst Disposition: 01 HOME, SELF-CARE Condition: IMPROVED Referrals: NO PCP (PCP) YANI HARVEY Jr, MD please call this [employer] [facility] FOR OUTPATIENT EVALUATION. Patient Instructions: Ovarian Cyst Additional Instructions: Thank you for visiting our Emergency Department. We appreciate you trusting us with your care. If any additional problems come up don't hesitate to return to visit us. Please follow up with your primary care provider so they can plan additional care if needed and know about the problem that you had. If symptoms worsen come back to the Emergency Department. Any concerning symptoms that start such as chest pain, shortness of air, weakness or numbness on one side of the body, running high fevers or any other concerning symptoms return to the ER. Scripts Naproxen Sodium (ANAPROX DS) 550 Mg Tablet 1 TAB PO BID PRN for PAIN for 15 Days, #30 TAB 0 Refills Prov: HAILEE PEMBERTON DO 06/18/20 Justicifation of Admission Dx: Justifications for Admission: Justification of Admission Dx: N/A HAILEE PEMBERTON DO Jun 18, 2020 14:06
[2020-06-18 14:23] LABS: BILIRUBIN,URINE NEGATIVE (NEG); CLARITY,URINE CLEAR; COLOR,URINE YELLOW; NITRITE,URINE NEGATIVE (NEG); PROTEIN,URINE NEGATIVE (NEG-TRACE); UROBILINOGEN,URINE 0.2 mg/dL (0.2 mg/dL)
[2020-06-18 14:47] LABS: BACTERIA,URINE FEW /HPF (0-FEW); SQUAMOUS EPITHELIAL CELL,UR FEW /LPF
[2020-06-18 14:58] LABS: BASO % 0 % (0-3); CALCIUM 8.8 mg/dL (8.5-10.1); CREATININE 0.6 mg/dL (0.6-1.0); EOS # 0.1 x10^3/uL (0.0-0.7); EOS % 2 % (0-3); HEMOGLOBIN 14.1 g/dL (12.0-15.5); LYMPH # 1.5 x10^3/uL (1.0-4.8); LYMPH % 23 % (24-48); MEAN CORPUSCULAR HEMOGLOBIN 31 pg (25-35); MEAN CORPUSCULAR HGB CONC 35 g/dL (31-37); MEAN CORPUSCULAR VOLUME 91 fL (79-100); MONO # 0.5 x10^3/uL (0.0-1.1); MONO % 8 % (0-9); NEUT # 4.5 x10^3/uL (1.8-7.7); NEUT % 68 % (31-73); PLATELET COUNT 331 x10^3/uL (140-400); RED BLOOD COUNT 4.51 x10^6/uL (3.50-5.40); RED CELL DISTRIBUTION WIDTH 13.6 % (11.5-14.5); WHITE BLOOD COUNT 6.7 x10^3/uL (4.0-11.0)
[2020-06-18] MEDS ORDERED: IV NORMAL SALINE 1000ML BAG 1,000 ML IV ONE (15:00)
[2020-06-18] MEDS ORDERED: KETOROLAC 30 MG/ML VIAL. IVP ONE ×2 (15:00→18:00)
[2020-06-18 15:04] LABS: ALBUMIN 3.9 g/dL (3.4-5.0); ALBUMIN/GLOBULIN RATIO 1.1 (1.0-1.7); TOTAL BILIRUBIN 0.4 mg/dL (0.2-1.0); TOTAL PROTEIN 7.6 g/dL (6.4-8.2)
[2020-06-18] MEDS ORDERED: CONTRAST GIVEN. MC PRN (15:45)
[2020-06-18] MEDS ORDERED: IOHEXOL 300 MG/ML 100ML VIAL. IV ONE (15:45)
[2020-06-18] MEDS ORDERED: clonazePAM 0.5 MG TABLET PO STA (16:42)
--- NOTE | 2020-06-18 17:17 | RAD ---
Exam: CT abdomen/pelvis with intravenous contrast Indication: Low abdominal pain for 5 days, nausea and vomiting Comparison: CT abdomen pelvis 08/11/2017 Technique: Helical CT imaging performed of the abdomen and pelvis after the intravenous administration of 75 mL Omnipaque 300 intravenous contrast. Sagittal and coronal reformats were obtained. One or more of the following individualized dose reduction techniques were utilized for this examination: 1. Automated exposure control 2. Adjustment of the mA and/or kV according to patient size 3. Use of iterative reconstruction technique. Findings: Lower chest: Lung bases are clear. The heart is normal in size. Liver: Focal fat along the falciform ligament. Liver is otherwise normal. Gallbladder/Biliary Tree: Normal. Pancreas: Normal. Spleen: Normal. Adrenal Glands: Normal. Kidneys/Ureters/Bladder: Kidneys are normal. No hydronephrosis. Ureters are nondilated. Urinary bladder is normal. Reproductive Organs: Uterus anteverted. Ovaries are unremarkable for age. There is a dominant right ovarian follicle. Stomach, small bowel, and colon: Stomach and small bowel are normal. The appendix is normal. Colon is normal. Vasculature: Abdominal aorta and inferior vena cava are normal. Lymph Nodes: No lymphadenopathy. Peritoneum and retroperitoneum: Small volume of free fluid in the pelvis. No free air. Bones: No acute osseous abnormality. Impression: 1. Small volume of free fluid in the pelvis and right lower quadrant, likely physiologic or possibly related to a ruptured ovarian cyst. 2. Normal appendix. Electronically signed by: Keeley Adkins MD (06/18/2020 5:14 PM) [id number]
[2020-06-18] MEDS ORDERED: NAPR-682 PO (17:43)
== END 2020-06-18 18:01 | disposition home or self-care (01) ==
LOC: ER 12:46
DX: N83.291 Other ovarian cyst, right side (principal); J45.909 Unspecified asthma, uncomplicated; F17.200 Nicotine dependence, unspecified, uncomplicated
CPT/HCPCS: 36415; 74177; 80053; 81001; 81025; 83690; 85025; 96361; 96374; 96376; 99285; J1885; J7030; Q9967; 96375

== ENCOUNTER 2020-09-15 20:12 | Emergency (ER) | payer SELFPAY ==
[~2020-09-15] VITALS: Ht 154.9 cm; Wt 50.0 kg
[~2020-09-15 20:12] MED LIST changes: +NAPR-682 PO
[2020-09-15 20:18] VITALS: BP 117/61
[2020-09-15] MEDS ORDERED: SELE120S2 TP (21:50)
[2020-09-15] MEDS ORDERED: CEPH-264 PO (21:50)
[2020-09-15] MEDS ORDERED: MUPI22OI2 TP (21:50)
--- NOTE | 2020-09-15 21:50 | ED.ADGEN ---
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 She states that the rash is very itchy and has had a honey crusting on it. She denies any new environmental exposures, foods, medications, or detergents. Patient states she has been under a lot of stress recently. She is also noticed a bald patch of skin to her scalp. She denies staying at any hotels or any known scabies exposure. She states that the pain feels like a burning sensation to her neck she rates the discomfort 8 out of 10 on the pain scale, she denies any alleviating factors. Patient denies any fever, cough, or shortness of breath. Review of Systems: Review of Systems: Complete ROS is negative unless otherwise noted in HPI. Allergies: Allergies: Allergies Coded Allergies Type Severity Reaction Last Updated Verified No Known Drug Allergies 08/28/13 No Physical Exam: PE: See Above Constitutional: Well developed, well nourished, no acute distress, non-toxic appearance. [] HENT: Normocephalic, atraumatic, bilateral external ears normal, nose normal. [] Eyes: PERRLA, EOMI, conjunctiva normal, no discharge. [] Neck: Normal range of motion, no stridor. [] Cardiovascular:Heart rate regular rhythm Lungs & Thorax: Respirations even and unlabored, no retractions, no respiratory distress Skin: Warm, dry, no erythema, no rash; there is a patch of baldness with scaly skin noted to the patient's crown of her scalp. Consistent with tinea capitis; scattered, honey crusted papules/plaques to neck, upper back, and bilateral upper arms consistent with impetigo Extremities: No cyanosis, ROM intact, no edema. [] Neurologic: Alert and oriented X 3, no focal deficits noted. [] Psychologic: Affect normal, judgement normal, mood normal. [] Current Patient Data: Vital Signs: Vital Signs Date Time Temp Pulse Resp B/P (MAP) Pulse Ox O2 Delivery O2 Flow Rate FiO2 12/19/20 20:18 98.0 62 14 117/61 (79) 96 Room Air 98.0 EKG: EKG: [] Heart Score: Risk Factors: Risk Factors: DM, Current or recent (<one month) smoker, HTN, HLP, family history of CAD, obesity. Risk Scores: Score 0 - 3: 2.5% MACE over next 6 weeks - Discharge Home Score 4 - 6: 20.3% MACE over next 6 weeks - Admit for Clinical Observation Score 7 - 10: 72.7% MACE over next 6 weeks - Early Invasive Strategies Radiology/Procedures: Radiology/Procedures: [] Course & Med Decision Making: Course & Med Decision Making Pertinent Labs and Imaging studies reviewed. (See chart for details) [] Dragon Disclaimer: Dragon Disclaimer: This electronic medical record was generated, in whole or in part, using a voice recognition dictation system. Departure Departure Impression: Primary Impression: Impetigo Additional Impression: Tinea capitis Disposition: 01 DC HOME SELF CARE/HOMELESS Condition: STABLE Referrals: NO PCP (PCP) Patient Instructions: Impetigo, Ringworm - Scalp, [id number] Additional Instructions: Fill the prescription(s) and use as directed. Keep fingernails trimmed short. Apply antibiotic ointment under fingernails as instructed. Follow up with your primary care doctor next week for recheck, return to the ER if symptoms worsen. [facility] [address] [place] [address] [facility] [address] [place] [address] [facility] [address] [facility] [address] [facility] [address] [place] [address] [facility] [address] [place] [address] [facility] [address] [place] [address] [facility] [address] [place] [address] [facility] [address] [place] [address] [facility] [address] [place] [address] [facility] [address] [place] [address] Scripts Selenium Sulfide (SELENIUM SULFIDE) 120 Ml Suspension 1 JENNIFER TP DAILY for 7 Days, #120 ML 0 Refills Prov: VIKAS LEZAMA FRAUD EXAMINER 09/15/20 Mupirocin (MUPIROCIN OINTMENT) 22 Gm Oint...g. 1 JENNIFER TP TID for WOUND CARE for 7 Days, #1 TUBE 0 Refills Prov: VIKAS LEZAMA FRAUD EXAMINER 09/15/20 Cephalexin (KEFLEX) 500 Mg Capsule 500 MG PO QID for 7 Days, #28 CAP 0 Refills Prov: VIKAS LEZAMA FRAUD EXAMINER 09/15/20 Problem Qualifiers VIKAS LEZAMA FRAUD EXAMINER Sep 15, 2020 21:50
== END 2020-09-15 21:54 | disposition home or self-care (01) ==
LOC: ER 20:12
DX: L01.00 Impetigo, unspecified (principal); B35.0 Tinea barbae and tinea capitis; J45.909 Unspecified asthma, uncomplicated; F17.200 Nicotine dependence, unspecified, uncomplicated
CPT/HCPCS: 99283

== ENCOUNTER → 2020-12-25 | Outpatient (CLI) | payer MEDICAID ==
[~2020-12-25] MED LIST changes: +CEPH-264 PO; +MUPI22OI2 TP; +SELE120S2 TP
--- NOTE | 2020-12-25 16:41 | RAD ---
EXAM: OB ULTRASOUND, > 14 WEEKS HISTORY: Size and dates discrepancy. COMPARISON: None. TECHNIQUE: Multiple grayscale images, color Doppler, and M-mode images of the uterus are obtained. FINDINGS: There is a single intrauterine gestation in breech presentation. The placenta is anterior in location without evidence of placenta previa. The amount of amniotic fluid appears appropriate. Amniotic flu id index is 11.8 cm. Cervical length is 4.1 cm. Biometrical data: BPD = 4.66 cm for 20 weeks 1 days. HC = 17.93 cm for 20 weeks 3 days. AC = 15.34 cm for 20 weeks 4 days. FL = 3.32 cm for 20 weeks 3 days. HC/AC ratio = 1.17. Overall, the estimated sonographic gestational age is 20 weeks and 3 days for an estimated date of de livery of 05/11/2021. The estimated date of delivery provided by the last menstrual period is . Estimated weight is 354 grams. A 4 chamber heart is identified with positive cardiac activity. The estimated heart rate is 125 beats per minute. Bilateral upper and lower extremities are identified. There is a three-vessel cord with cord insertion visualized. stomach and urinary bladder are identified. Both kidneys are seen. There is suboptimal evaluation of the spine due to presentation. The brain is unrem arkable. No obvious anatomic abnormalities are identified. The maternal adnexal regions are unremarkable. IMPRESSION: 1. Single intrauterine fetus with normal heart rate in breech presentation with an estimated gestatio nal age based on ultrasound measurements of 20 weeks and 3 days. The estimated gestational age based on LMP is 21 weeks and 0 days. 2. Suboptimal evaluation of the spine due to presentation. The remainder of the aleyda hussein survey is unremarkable. Electronically signed by: Mikki Ochoa MD (12/25/2020 4:39 PM) [id number]
== END ==
LOC: US 14:02
PROVIDERS: ATTEND Obstetrics & Gynecology
DX: O26.842 Uterine size-date discrepancy, second trimester (principal); Z3A.21 21 weeks gestation of pregnancy
CPT/HCPCS: 76805

== ENCOUNTER 2021-01-08 16:34 | Observation (INO) | payer MEDICAID ==
[2021-01-08 17:20] LABS: BILIRUBIN,URINE NEGATIVE (NEG); CLARITY,URINE CLEAR; COLOR,URINE YELLOW; NITRITE,URINE NEGATIVE (NEG); PROTEIN,URINE NEGATIVE (NEG-TRACE); UROBILINOGEN,URINE 0.2 mg/dL (0.2 mg/dL)
[2021-01-08 17:25] LABS: AMORPHOUS SEDIMENT,UR PRESENT /HPF; BACTERIA,URINE MODERATE /HPF (0-FEW)
[2021-01-08 17:26] LABS: GRANULAR CASTS,URINE OCCASIONAL /HPF; HYALINE CASTS, URINE OCCASIONAL /HPF
[2021-01-08 17:27] LABS: RBC,URINE 0 /HPF (0-2)
== END 2021-01-08 18:00 | disposition home or self-care (01) ==
LOC: 3 SO LND 16:34
PROVIDERS: ADMIT Obstetrics & Gynecology; ATTEND Obstetrics & Gynecology
DX: O36.8120 Decreased fetal movements, second trimester, not applicable or unspecified (principal); O26.892 Other specified pregnancy related conditions, second trimester; R10.30 Lower abdominal pain, unspecified; Z3A.22 22 weeks gestation of pregnancy; Z98.891 History of uterine scar from previous surgery
CPT/HCPCS: 59025; 81001; 87086; G0378; G0379